=== PATIENT | female | born 1975 | race Native Hawaiian/Other Pacific Islander ===

== ENCOUNTER 2017-07-29 07:42 | Emergency (ER) | payer OTHER ==
[~2017-07-29] VITALS: Ht 157.5 cm; Wt 112.0 kg
[2017-07-29 07:40] VITALS: TEMP 97.8
[2017-07-29 10:36] VITALS: BP 128/74
== END 2017-07-29 10:36 | disposition home or self-care (01) ==
LOC: ED 07:42
PROC: 0HQ1XZZ Repair Face Skin, External Approach (ICD-10-PCS; principal; 2017-07-29)
DX: S01.22XA Laceration with foreign body of nose, initial encounter (principal); S00.81XA Abrasion of other part of head, initial encounter; W10.9XXA Fall (on) (from) unspecified stairs and steps, initial encounter; Y92.098 Other place in other non-institutional residence as the place of occurrence of the external cause
CPT/HCPCS: 81025; 90715; 96372; 99283; J0696